=== PATIENT | female | born 1990 | race American Indian/Alaskan Native ===

== ENCOUNTER 2016-11-10 06:34 | Emergency (ER) | payer SELFPAY ==
[2016-11-10 06:46] VITALS: BP 103/67
--- NOTE | 2016-11-10 08:02 | Emergency Department Report ---
HPI - General Chief Complaint: Sore Throat Time Seen by Provider: 11/10/16 07:15 - HPI HPI: Patient here complaining of sore throat times one week. She reports that she does have fever today but she had fever yesterday and she is having chills. Did not take her temperature. She also said that she was coughing for 3 days on and off. She is complaining of pain 4 out of 10 and worse with swallowing. She said her throat is red at the back. Denies any shortness of breath or swelling of tongue. She said her throat is worst when she swallowed. Denies any nausea or vomiting or abdominal pain. She says she took Motrin prior to coming to the emergency room. ED Past Medical Hx - Past Medical History Previous Medical History?: No - Surgical History Past Surgical History?: No - Family History Family history: hypertension - Social History Smoking Status: Current Every Day Smoker Substance Use Type: Alcohol, Marijuana - Medications Home Medications: Home Medications Medication Instructions Recorded Confirmed Last Taken Type Clindamycin [Clindamycin CAP] 300 mg PO Q8H #30 cap 11/10/16 Unknown Rx Ibuprofen [Motrin] 600 mg PO Q8H PRN #15 tablet 11/10/16 Unknown Rx ED Review of Systems ROS: Stated complaint: FEVER/SWOLLEN GLANDS Other details as noted in HPI Comment: All other systems reviewed and negative Constitutional: chills, fever Eyes: denies: eye pain, eye discharge ENT: throat pain. denies: ear pain, congestion Respiratory: no symptoms reported Cardiovascular: denies: chest pain, palpitations, edema, syncope Gastrointestinal: denies: abdominal pain, nausea, vomiting Musculoskeletal: denies: back pain, arthralgia Skin: denies: rash Neurological: denies: headache, weakness, vertigo Physical Exam - Physical Exam Vital Signs: Vital Signs 11/10/16 06:42 Temperature 98.3 F Pulse Rate 61 Respiratory 18 Rate Blood Pressure 103/67 O2 Sat by Pulse 100 Oximetry General: This is a 26-year-old female well-nourished well-developed in no acute distress. Physical Exam: Head: Normocephalic atraumatic Mouth: Moist, positive pharyngeal exudate and erythema. Uvula is midline and oral airway is patent. No gingival enlargement or dental tenderness. No facial swelling. No peritonsillar abscesses. Neck: Supple, no C-spine tenderness, no tracheal deviation. Nontender to palpate. no adenopathy Ears: Bilateral TMs Pearly harrell .bilateral EAC without any redness swelling or drainage Eyes: Bilateral pupils equal and reactive to light, bilateral EOM intact. Bilateral sclera and conjunctiva without injection. Normal accommodation Nose: Mucosa moist, Nl mucosa. maxillary and frontal sinus non-tender to palpate. Lungs: Clear to auscultate bilaterally no rhonchi wheezes or rales. Normal work of breathing extremity; No CCE. +2 pulses. No neurovascular compromise Cardiovascular: S1-S2, regular rate rhythm. No murmurs. Skin: clean Dry and intact no rash no lesions Psych: Normal mood and behavior ED Course Vital Signs 11/10/16 06:42 Temperature 98.3 F Pulse Rate 61 Respiratory 18 Rate Blood Pressure 103/67 O2 Sat by Pulse 100 Oximetry - Reevaluation(s) Reevaluation #1: 11/10/16 08:19 She is stable throughout ED course. ED Medical Decision Making - Medical Decision Making ED course: I discussed the patient based on my physical findings she has strep throat. Patient has pharyngeal exudate with erythema and swelling, fever or chills and enlarged lymph nodes. Patient is allergic to penicillin and I explained to her that I'll put her on clindamycin and Motrin. He voices understanding the diagnosis and treatment plan and discharged home with prescription for clindamycin and Motrin Critical care attestation.: If time is entered above; I have spent that time in minutes in the direct care of this critically ill patient, excluding procedure time. ED Disposition Clinical Impression: Exudative pharyngitis Disposition: DC-01 TO HOME OR SELFCARE Is pt being admited?: No Does the pt Need Aspirin: No Condition: Stable Instructions: Strep Throat (ED) Additional Instructions: You can gargle with warm salt water to relieve throat discomfort Take Motrin as prescribed for sore throat. Please take antibiotic as prescribed. Fred Woods primary care physician and 3-5 days and if you do not have one he can follow-up with [facility]. Prescriptions: Clindamycin [Clindamycin CAP] 300 mg PO Q8H #30 cap Ibuprofen [Motrin] 600 mg PO Q8H PRN #15 tablet PRN Reason: Pain Referrals: PRIMARY CARE, [Primary Care Provider] - 3-5 Days [facility] [Outside] - 3-5 Days Forms: Work/School Release Form(ED)
== END 2016-11-10 08:35 | disposition home or self-care (01) ==
LOC: ED 06:34
DX: J02.9 Acute pharyngitis, unspecified (principal); F12.10 Cannabis abuse, uncomplicated; F17.200 Nicotine dependence, unspecified, uncomplicated
CPT/HCPCS: 99282

== ENCOUNTER 2016-11-24 10:50 | Emergency (ER) | payer OTHER ==
[2016-11-24 11:31] VITALS: BP 168/92
[2016-11-24] MEDS ORDERED: ULTRAM PO ONE (13:05)
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
== END 2016-11-24 13:53 | disposition home or self-care (01) ==
LOC: ED 10:50
DX: S50.811A Abrasion of right forearm, initial encounter (principal); F17.200 Nicotine dependence, unspecified, uncomplicated; Z88.0 Allergy status to penicillin; V89.2XXA Person injured in unspecified motor-vehicle accident, traffic, initial encounter; W22.10XA Striking against or struck by unspecified automobile airbag, initial encounter; Y93.89 Activity, other specified; Y99.8 Other external cause status; Y92.89 Other specified places as the place of occurrence of the external cause
CPT/HCPCS: 99282

== ENCOUNTER 2017-05-04 14:24 | Emergency (ER) | payer SELFPAY ==
[2017-05-04 14:35] VITALS: BP 127/75
--- NOTE | 2017-05-04 16:43 | Emergency Department Report ---
Eye Injury/Foreign Body - HPI Duration: 4 Days Eye Location: Right (eyelid) Severity: Mild (4/10 worst with blinking and touch.) Tetanus Status: Up to Date Eye Symptoms: Eye Pain: Yes (pain to her right eyelid), Blurred Vision: No, Eye Redness: No (redness to right upper eyelid), Grinding/Hammering Metal: No, Used Eye Protection: No, Contact Lens Use: No, Recalls Injury: No, Photophobia: No Other History: Patient here reports that she noticed that she had swelling to her right upper eyelid since Sunday and she is having redness that started out as a small bump now it spread in. She states that she is having pain for the 10 to right upper eyelid worse with touch and drinking better without movement. Denies any change in her vision. She says she's had similar incident in the past to her left upper eyelid. Denies any trauma. ED Review of Systems ROS: Stated complaint: RIGHT EYE SWOLLEN Other details as noted in HPI Comment: All other systems reviewed and negative Constitutional: no symptoms reported Eyes: eye pain (pain to right upper eyelid). denies: eye discharge, vision change ENT: denies: ear pain, throat pain, dental pain, congestion Respiratory: no symptoms reported Cardiovascular: denies: chest pain, palpitations, edema, syncope Gastrointestinal: denies: nausea, vomiting Musculoskeletal: denies: back pain, joint swelling, arthralgia, myalgia Skin: other (redness swelling and pain to right upper eyelid) Neurological: denies: headache, numbness, paresthesias, confusion, abnormal gait , vertigo ED Past Medical Hx - Past Medical History Previous Medical History?: No Additional medical history: Hyper Thyroid - Surgical History Past Surgical History?: No - Family History Family history: no significant - Social History Smoking Status: Never Smoker Substance Use Type: Alcohol - Medications Home Medications: Home Medications Medication Instructions Recorded Confirmed Last Taken Type Clindamycin [Clindamycin CAP] 300 mg PO Q8H #30 cap 11/10/16 Unknown Rx Ibuprofen [Motrin] 600 mg PO Q8H PRN #15 tablet 11/10/16 Unknown Rx Cyclobenzaprine [Flexeril] 10 mg PO TID PRN #30 tablet 11/24/16 Unknown Rx Naproxen [Naprosyn TAB] 500 mg PO BID PRN #60 tablet 11/24/16 Unknown Rx Gentamicin 0.3% Ophth Oint 1 applicatio OP Q8H 7 Days #1 tube 05/04/17 Unknown Rx Ibuprofen [Motrin] 600 mg PO Q8H PRN 4 Days #12 tablet 05/04/17 Unknown Rx Sulfamethoxazole/Trimethoprim 1 each PO BID 14 Days #7 tablet 05/04/17 Unknown Rx [Bactrim DS TAB] Eye Injury Exam - Exam General: Vital signs noted. No distress. Alert and acting appropriately. 26 yo female well nourished , well developed in no acute distress - Visual Acuity Right Vision Acuity Degree: 20/25 Eye Exam: Both EOMI, Neither Injection, Neither Chemosis, Neither Abnormal Pupil , Neither Eye Foreign Body, Neither Lid Foreign Body (right upper eyelid redness swelling small indurated areasurrounding cellulitis), Neither Mucous Discharge, Neither Purulent Discharge, Neither Photophobia Left Vision Acuity Degree: 20/20 Eye Exam: Both EOMI, Neither Injection, Neither Chemosis, Neither Abnormal Pupil , Neither Eye Foreign Body, Neither Lid Foreign Body, Neither Mucous Discharge, Neither Purulent Discharge, Neither Corneal Edema, Neither Photophobia Exam: Eyes: visuality normal in both eyes with correction. Victoriano scleara and conjunctiva without injection, BEOMI, Normal accomdation bilaterally. Bilateral Eye Exam: Both EOMI, Neither Injection, Neither Chemosis, Neither Abnormal Pupil , Neither Corneal Edema, Neither Photophobia Exam: Neck: Supple, full range of motion. CV: S1, S2. Regular rate rhythm. Negative negative murmur. Lungs: Clear to auscultate bilaterally, no rhonchi wheezes or rales. Skin: Noted erythema area to right upper lid, small indurated area without any fluctuance to Center of erythema. Area is tender to palpate. No drainage noted. GEN is otherwise normal. EXT:No Clubbing, cyanosis or edema. +2 pulses in all extremities ED Course Vital Signs 05/04/17 14:30 Temperature 98 F Pulse Rate 79 Respiratory 16 Rate Blood Pressure 127/75 O2 Sat by Pulse 97 Oximetry - Reevaluation(s) Reevaluation #1: 05/04/17 17:20 Patient stable throughout ED stay ED Medical Decision Making - Medical Decision Making ED Course: She presented to the emergency room with right upper eyelid swelling for over 4 days. Physical findings for stye with cellulitis extending around indurated area. Area of cellulitis spends entire right upper eyelid without any eye involvement. Visual acuity is stable and patient has no change in his vision. She visual acuity documentation for detail. She has no conjunctival or sclerae abnormality. Discussed patient that she has stye to her right upper eyelid with cellulitis surrounding area. I discussed with her that she'll need to be on antibiotic topical and oral and she'll need to follow-up with the eye doctor on Sunday. Patient voiced understanding of discharge instructions, diagnosis and treatment plan and needed follow-up. Patient instructed if symptoms worsen to return to the emergency room otherwise follow-up with eye doctor. Return home in stable condition. Critical care attestation.: If time is entered above; I have spent that time in minutes in the direct care of this critically ill patient, excluding procedure time. ED Disposition Clinical Impression: Hordeolum externum right upper eyelid, Cellulitis of right upper eyelid Disposition: DC- TO HOME OR SELFCARE Is pt being admited?: No Does the pt Need Aspirin: No Condition: Stable Instructions: Stye (ED), Cellulitis (ED) Additional Instructions: Please apply warm compresses to affected area right upper eyelid by antibiotic ointment Antibiotic by mouth as discussed Follow-up with lead auditor on May 07. d not not rub or pick at affected area to right upper eyelid Prescriptions: Gentamicin 0.3% Ophth Oint 1 applicatio OP Q8H 7 Days #1 tube Ibuprofen [Motrin] 600 mg PO Q8H PRN 4 Days #12 tablet PRN Reason: Pain Sulfamethoxazole/Trimethoprim [Bactrim DS TAB] 1 each PO BID 14 Days #7 tablet Referrals: PRIMARY MD KATLIN [Primary Care Provider] - 05/07/17 AILIN RANDLE MD [Staff Physician] - 05/07/17 Forms: Work/School Release Form(ED), Accompanied Note
== END 2017-05-04 17:31 | disposition home or self-care (01) ==
LOC: ED 14:24
DX: H00.031 Abscess of right upper eyelid (principal); H00.011 Hordeolum externum right upper eyelid
CPT/HCPCS: 99282